=== PATIENT | female | born 1985 | race Caucasian/White ===

== ENCOUNTER 2017-08-20 09:25 | Emergency (ER) | payer OTHER ==
--- NOTE | 2017-08-20 11:01 | C.PDOC ---
History Of Present Illness <Georgia Orellana DO - Last Filed: 08/20/17 11:46> <Esteban Banda - Last Filed: 08/20/17 13:29> Patient is a 31 year old female with PMHx anemia who presents to the ED with complaint of left-sided low back pain that began this morning after she picked up her child. 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 She states that standing for prolonged time and sneezing worsens pain. She did not take any medication for the pain. She wrapped her back with abdominal binder she had left over from her prior cesarian which helped minimally. She denies numbness or tingling in back or extremities, she denies radiation of pain. She states about 20 years ago she had similar pain but does not recall the intervention done at that time. (Georgia Orellana DO) History Per: Patient History/Exam Limitations: no limitations Onset/Duration Of Symptoms: Hrs Current Symptoms Are (Timing): Still Present Quality Of Discomfort: Sharp Pain Scale Rating Of: 6 Previous Symptoms: Back Pain Associated Symptoms: None Exacerbating Factor(s): Turning, Movement, Standing <Georgia Orellana DO - Last Filed: 08/20/17 11:46> <Esteban Banda - Last Filed: 08/20/17 13:29> Time Seen by Provider: 08/20/17 10:42 Chief Complaint (Nursing): Back Pain Past Medical History - Medical History PMH: Anemia Surgical History: Appendectomy, Family History: States: Unknown Family Hx - Social History Hx Tobacco Use: No Hx Alcohol Use: No Hx Substance Use: No <Georgia Orellana DO - Last Filed: 08/20/17 11:46> Vital Signs: Last Vital Signs Temp 98.4 F 08/20/17 10:12 Pulse 67 08/20/17 10:12 Resp 18 08/20/17 10:12 BP 113/70 08/20/17 10:12 Pulse Ox 100 08/20/17 11:47 Review Of Systems Constitutional: Negative for: Fever, Chills, Sweats, Weakness Eyes: Negative for: Pain, Vision Change ENT: Negative for: Ear Pain Cardiovascular: Negative for: Chest Pain, Palpitations Respiratory: Negative for: Cough, Shortness of Breath Gastrointestinal: Negative for: Nausea, Vomiting, Abdominal Pain, Diarrhea Genitourinary: Negative for: Dysuria, Frequency, Incontinence, Pelvic Pain Musculoskeletal: Positive for: Back Pain. Negative for: Neck Pain, Leg Pain Neurological: Negative for: Weakness, Numbness, Incoordination, Change in Speech <Georgia Orellana DO - Last Filed: 08/20/17 11:46> Physical Exam - Physical Exam Appears: Non-toxic, No Acute Distress, Other (uncomfortable) Skin: Normal Color, Warm, Dry Head: Atraumatic, Normacephalic Eye(s): bilateral: PERRL, EOMI Nose: Normal Oral Mucosa: Moist Tongue: Normal Appearing Throat: Normal, No Erythema, No Exudate Neck: Normal ROM, No Midline Cervical Tenderness, No Paracervical Tenderness Chest: Symmetrical Cardiovascular: Rhythm Regular Respiratory: Normal Breath Sounds Gastrointestinal/Abdominal: Bowel Sounds, Soft, No Tenderness Back: Decreased ROM (flexion elicits pain), Muscle Spasm, Paraspinal Tenderness (left lumbar spine), Straight Leg Raising (left leg raise elicits pain) Extremity: No Pedal Edema Neurological/Psych: Oriented x3, Normal Speech, Normal Cognition, Normal Cranial Nerves, Normal Sensation <Georgia Orellana DO - Last Filed: 08/20/17 11:46> ED Course And Treatment - Laboratory Results Urine POC: Negative O2 Sat by Pulse Oximetry: 100 <Georgia Orellana DO - Last Filed: 08/20/17 11:46> Medical Decision Making <Georgia Orellana DO - Last Filed: 08/20/17 11:46> <Esteban Banda - Last Filed: 08/20/17 13:29> Medical Decision Making: back pain patient states improvement. LS spine xray preliminary read as negative. Will discharge patient home to follow up with pmd in 2 days. (Esteban Banda) Disposition Counseled Patient/Family Regarding: Studies Performed, Diagnosis, Need For Followup, Rx Given <Georgia Orellana DO - Last Filed: 08/20/17 11:46> Discussed With : Aj Lauren Counseled Patient/Family Regarding: Studies Performed, Diagnosis, Need For Followup, Rx Given - Disposition Disposition Time: 13:27 <Esteban Banda - Last Filed: 08/20/17 13:29> - Disposition Referrals: Aj Lauren MD [Staff Provider] - Disposition: HOME/ ROUTINE Condition: GOOD Additional Instructions: Please follow up with your doctor in the next two days. Continue your home medications and new medications as prescribed. Return to ED if symptoms worsen or reoccur. Prescriptions: Cyclobenzaprine [Flexeril] 5 mg PO TID PRN #15 tab PRN Reason: Muscle Spasm Ibuprofen [Motrin Tab] 600 mg PO TID PRN #15 tab PRN Reason: Pain, Severe (8-10) Instructions: Low Back Pain (DC), Muscle Strain (DC), Lumbar Muscle Strain (DC ) Forms: [employer] (Bengali), General Discharge Instructions - Clinical Impression Clinical Impression: Low back strain, Low back pain - PA / BUSINESS ADVISOR / Resident Statement MARIA TERESA has reviewed & agrees with the documentation as recorded. MARIA TERESA has examined the patient and agrees with the treatment plan. <Georgia Orellana DO - Last Filed: 08/20/17 11:46>
[2017-08-20 13:39] VITALS: BP 100/64; PULSE 66; RESP 16; TEMP 98
--- NOTE | 2017-08-20 14:46 | RAD ---
PROCEDURE: Radiographs of the Lumbar Spine. HISTORY: back pain COMPARISON: No prior. FINDINGS: BONES: Normal alignment. No listhesis. No fracture. DISC SPACES: Unremarkable. OTHER FINDINGS: Constipation without fecal impaction or obstruction. Calcific density overlying the expected location of the left kidney perhaps left renal calculus disease. IMPRESSION: Unremarkable radiographs of the lumbar spine. Additional benign and/or incidental findings described above.
[2017-08-20 15:27] VITALS: O2SAT 100
== END 2017-08-20 13:39 | disposition home or self-care (01) ==
LOC: C.ER 09:25
DX: M54.5 Low back pain (principal); S39.012A Strain of muscle, fascia and tendon of lower back, initial encounter; X50.0XXA Overexertion from strenuous movement or load, initial encounter; Y92.009 Unspecified place in unspecified non-institutional (private) residence as the place of occurrence of the external cause